=== PATIENT | female | born 1990 | race Caucasian/White ===

== ENCOUNTER 2019-07-27 11:57 | Day surgery (SDC) | payer BC ==
[2019-07-27 12:42] VITALS: BMI 37.8
[2019-07-27 13:11] LABS: Amnisure Internal Control QC ACCEPTABLE (ACCEPTABLE); Amnisure Test No Membranes Rupture (No Rupture)
--- NOTE | 2019-07-27 13:34 | PDOC.LDHP ---
Labor and Delivery H&P Chief complaint: loss of fluid HPI: 29 y/o G1 at 36w3d, patient of Dr. Logan, presents with gush of fluid earlier today but no continued leaking. Also having some cramping. Denies VB or decreased FM. ROS neg for HEENT, cv, pulm, gi, gu, neuro, psych, skin, musculoskeletal or constitutional symptoms other than mentioned above. OB History Details: 1st Current complications: none, other (possible PUPPPS) Past Medical History: Psoriasis Current medications: pre- vitamins, other (benadryl, hydrocortisone, betamethasone) Allergies/Adverse Reactions: Allergies Allergy/AdvReac Type Severity Reaction Status Date / Time No Known Allergies Allergy Verified 07/27/19 12:42 Social history: none - Physical Exam Vital signs reviewed and normal: yes General: NAD, resting Lungs: nonlabored breathing Abdomen: gravid Extremeties: no edema FHT: category 1 (150s, mod variability, + accels, no decels) Imperial contractions every: irregular - Vaginal Exam cm dilated: 1 (SSE neg for pooling or valsalva) Effacement: 25% Station: -3 - Assessment 29 y/o G1 at 36w3d with no e/o SROM or active labor. Neg SSE and amnisure. status reassuring with reactive NST. - Plan -: D/c home with precautions. Advised to keep all appointments.
== END 2019-07-27 13:40 | disposition home or self-care (01) ==
LOC: L&D/OP 11:57
PROVIDERS: ATTEND Obstetrics & Gynecology
DX: O99.89 Other specified diseases and conditions complicating pregnancy, childbirth and the puerperium (principal); N89.8 Other specified noninflammatory disorders of vagina; O47.03 False labor before 37 completed weeks of gestation, third trimester; Z3A.36 36 weeks gestation of pregnancy
CPT/HCPCS: 84112; 87480; 87510; 87660

== ENCOUNTER 2019-08-18 00:59 | Inpatient (IN) | payer BC ==
[2019-08-18] MEDS ORDERED: NS / Oxytocin 40 units/1000ml 1,000 ML IV PRN (01:43)
[2019-08-18] MEDS ORDERED: Promethazine HCl 25 MG/ML VIAL IM PRN ×2 (01:43→04:19)
[2019-08-18] MEDS ORDERED: hydrALAZINE 20 MG/ML VIAL SLOW IVP PRN ×2 (01:43→19:32)
[2019-08-18] MEDS ORDERED: Ibuprofen 800 MG TAB PO PRN (01:43)
[2019-08-18] MEDS ORDERED: HYDROcodone/Acetaminophen 5/325 mg Tablet PO PRN ×2 (01:43)
[2019-08-18] MEDS ORDERED: Ondansetron PF 4 MG/2 ML Vial IVP PRN ×2 (01:43→04:19)
[2019-08-18] MEDS ORDERED: Lidocaine 1% (PF) 30 ML VIAL SC PRN (01:43)
--- NOTE | 2019-08-18 01:45 | PDOC.EVN ---
Event Note - Event Note Event Note: Direct Admission to Private Physician/Desmond Courtesy orders placed I confirmed cephalic presentation by limited bedside sono (per RN request)
[2019-08-18 02:07] VITALS: BMI 38.6
[2019-08-18] MEDS: Lactated Ringer's 1,000 ML IV SCH ×3 (02:15→11:33)
[2019-08-18 02:29] LABS: Hemoglobin 13.2 g/dL (12.0-16.0); Mean Corpuscular HGB CONC 35.6 g/dL (32.0-36.0); Mean Corpuscular Hemoglobin 30.9 pg (27.0-31.0); Mean Platelet Volume 10.1 fL (7.4-10.4); Platelet Count 181 thou/uL (130-400); RBC Distribution Width 12.9 % (11.5-14.5); Red Blood Cell (RBC) Count 4.27 mill/uL (4.20-5.40)
[2019-08-18] MEDS ORDERED: Fentanyl 4 mcg/Bup 0.1% Cadd 100 ML ONE ×3 (02:55→16:05)
[2019-08-18 03:09] LABS: HBSAg Index 0.19 S/CO (0-0.99); HIV (1/2) Antibody/Antigen Non-Reactive (NonReactive); HIV 1/2 INDEX 0.06 S/CO (<1.00); Hep B Surf Ag Non-Reactive S/CO (NonReactive)
[2019-08-18] MEDS ORDERED: diphenhydrAMINE 50 MG/ML VIAL IVP PRN (04:19)
[2019-08-18] MEDS ORDERED: ePHEDrine/0.9% NaCl/PF SYRINGE 50 mg/10 ml SLOW IVP PRN (04:19)
[2019-08-18] MEDS ORDERED: Lactated Ringer's 500 ML IV PRN (04:19)
[2019-08-18] MEDS ORDERED: Acetaminophen 325 MG TAB PO PRN (04:19)
[2019-08-18] MEDS ORDERED: Naloxone HCl 0.4 mg/ml Vial IVP PRN ×2 (04:19)
[2019-08-18] MEDS ORDERED: Communication Order-Pharmacy FS SCH (04:30)
[2019-08-18] MEDS ORDERED: Fentanyl 4 mcg/Bupivacaine 0.1% Cassette 100 ML EPIDURAL SCH (04:30)
[2019-08-18 06:17] LABS: Syphilis Antibody Nonreactive (Nonreactive); Syphilis Antibody Index 0.04 S/CO (<1.00 Non-Reactive)
--- NOTE | 2019-08-18 08:11 | PDOC.LDHP ---
Labor and Delivery H&P Chief complaint: loss of fluid Current gestational age (weeks): 39 Dating criteria: first trimester ultrasound Grav: 1 Current complications: none Abnormal US findings: No Current medications: pre-paras vitamins Previous surgical history: other (ureteral reimplantation as a child) Allergies/Adverse Reactions: Allergies Allergy/AdvReac Type Severity Reaction Status Date / Time No Known Allergies Allergy Verified 07/27/19 12:42 Social history: none - Physical Exam General: NAD Heart: RRR Lungs: CTAB Abdomen: gravid FHT: category 1 - Vaginal Exam cm dilated: 2 Effacement: 75% Station: -1 - OB Labs Blood type: O RH: negative Antibody Screen: negative HIV: negative RPR: negative HEPSAg: negative 1 hour GCT: negative GBS: negative Urine drug screen: negative Rubella: immune - Assessment L&D Assessment: term rupture in membranes - Plan Plan: admit to L&D, labor augmentation if indicated
[2019-08-18] MEDS ORDERED: NS w/ Oxytocin 10 units 500 ML ONE (08:12)
[2019-08-18] MEDS ORDERED: NS / Oxytocin 40 units/1000ml 1,000 ML IV SCH ×2 (08:15→20:00)
[2019-08-18 19:03] LABS: Actual Bicarbonate (HCO3a) 21.9 mEq/L (22-28); Base Excess (BEa) -6.2 mEq/L (-2.0 to +3.0)
[2019-08-18] MEDS ORDERED: Lanolin Ointment 7 GM TUBE TOP PRN (19:32)
[2019-08-18] MEDS ORDERED: Bisacodyl 10 MG SUPP PR PRN (19:32)
[2019-08-18] MEDS ORDERED: Benzocaine-Menthol 82.5 ML CAN TOP PRN (19:32)
[2019-08-18] MEDS ORDERED: Misoprostol 200 MCG TAB VAG PRN (19:32)
--- NOTE | 2019-08-18 21:10 | PDOC.OPDEL ---
OB Operative/Delivery Note Delivery Dr/Surgeon: Des[facility] Pre-Delivery Diagnosis: active labor Procedure/Post Delivery Dx: operative vaginal delivery Weeks gestation: 39 Anesthesia: epidural - Findings A Sex: male Weight: 8 lb 2 oz - 1 min: 6 - 5 min: 9 - Additional Findings/Plan Placenta delivered: spontaneous Repaired Obstetrical Laceration: 3rd degree (With anal verge rectal extension. Layered repair technique carried out with 3-0 chromic running continuous rectal mucosa closure reinforced with perirectal fascial interrupted 3-0 chromic sutures. External sphincter reapproximated with figure of 8 2-0 chromic sutures x 3. The remainder of vaginal mucosa closed with 3-0 chromic sutures. Counts correct x 2.) Estimated blood loss: 400 ml
[2019-08-18] MEDS: Docusate Calcium (SURFAK) 240 MG CAP PO SCH (21:53)
[2019-08-19] MEDS: Lactated Ringer's 1,000 ML IV SCH (00:25)
[2019-08-19] MEDS ORDERED: Sodium Chloride 0.9% 10 ML ONE ×2 (04:03→08:36)
[2019-08-19] MEDS: Ibuprofen 800 MG TAB PO SCH ×3 (04:18→20:51)
--- NOTE | 2019-08-19 07:53 | PDOC.PP ---
Post Progress Note Post Day #: 1 PO intake tolerated: yes Flatus: yes Ambulation: yes Vital Signs (12 hours) Temp Pulse Resp BP Pulse Ox 08/19/19 04:16 97.8 F 101 H 18 125/71 08/18/19 23:00 97.8 F 109 H 18 131/69 08/18/19 21:55 98.8 F 111 H 18 126/74 08/18/19 20:55 98.3 F 107 H 18 137/76 96 Weight Weight 225 lb Result Diagrams: 08/18/19 02:20 Additional Labs: Post Labs Blood Type O NEGATIVE 08/18/19 04:44 Hep Bs Antigen Non-Reactive S/CO (NonReactive) 08/18/19 02:20 - Assessment/Plan Post day 0-1..Low forceps assisted vaginal delivery for maternal exhaustion in second stage with no further descent after additional hour of pushing . tachycardia 160-170...Third degree extension with rectal mucosa anal verge separation repaired. Tara care and post routine support.
[2019-08-19] MEDS: Prenatal Vitamin 1 TAB PO SCH (08:59)
[2019-08-19] MEDS: Docusate Calcium (SURFAK) 240 MG CAP PO SCH ×2 (08:59→20:51)
[2019-08-19] MEDS ORDERED: Adacel (T-DAP) 0.5 ML SYRINGE IM ONE (09:00)
[2019-08-19] MEDS: Ferrous Sulfate 325 MG TAB PO SCH ×2 (09:00→16:37)
[2019-08-19] MEDS: Milk Of Magnesia 30 ML UDCUP PO PRN (09:03)
[2019-08-19] MEDS: traMADol HCl 50 MG TAB PO PRN (11:15)
[2019-08-19] MEDS ORDERED: Witch Hazel-Glycerin 1 EACH JAR TOP SCH (12:00)
[2019-08-19] MEDS: HYDROcodone/Acetaminophen 5/325 mg Tablet PO PRN (21:15)
[2019-08-20] MEDS: HYDROcodone/Acetaminophen 5/325 mg Tablet PO PRN (03:32)
[2019-08-20] MEDS: Ibuprofen 800 MG TAB PO SCH ×2 (06:14→15:00)
[2019-08-20 07:25] VITALS: BP 120/70; TEMP 98.2
--- NOTE | 2019-08-20 08:23 | PDOC.PP ---
Post Progress Note Post Day #: 2 Subjective: Doing better. pain lessening. Had bowel movement yesterday and did ok. No bowel incontinence. PO intake tolerated: yes Flatus: yes Ambulation: yes Vital Signs (12 hours) Temp Pulse Resp BP Pulse Ox 08/20/19 07:10 98.2 F 96 16 120/70 98 08/20/19 04:18 99 08/19/19 20:45 99 Weight Weight 225 lb Result Diagrams: 08/18/19 02:20 Additional Labs: Post Labs Blood Type O NEGATIVE 08/18/19 04:44 Hep Bs Antigen Non-Reactive S/CO (NonReactive) 08/18/19 02:20 - Assessment/Plan Post day 2 from low forcep assisted vaginal delivery. Third degree extension with anal verge mucosa tear. Progessing well. BM accomplished without difficulty. Plan to discharge home. Tara care improtance reviewed. F/U 2 and 6 weeks.
[2019-08-20] MEDS: Ferrous Sulfate 325 MG TAB PO SCH (09:10)
[2019-08-20] MEDS: Prenatal Vitamin 1 TAB PO SCH (09:14)
[2019-08-20] MEDS: traMADol HCl 50 MG TAB PO PRN ×2 (09:14→15:00)
[2019-08-20] MEDS: Docusate Calcium (SURFAK) 240 MG CAP PO SCH (09:14)
[2019-08-20] MEDS: Milk Of Magnesia 30 ML UDCUP PO PRN (10:50)
[2019-08-20] MEDS ORDERED: Measles/Mumps/Rubella 10 MCG/0.5 ML VIAL SC ONE (11:45)
== END 2019-08-20 15:25 | disposition home or self-care (01) | DRG 768 ==
LOC: L&D/OP 00:59 → L&D 01:30 → 3SW 21:01
PROVIDERS: ADMIT Obstetrics & Gynecology; ATTEND Obstetrics & Gynecology
PROC: 10D07Z3 Extraction of Products of Conception, Low Forceps, Via Natural or Artificial Opening (ICD-10-PCS; principal; 2019-08-18)
PROC: 0DQP0ZZ Repair Rectum, Open Approach (ICD-10-PCS; 2019-08-18)
DX: O70.20 Third degree perineal laceration during delivery, unspecified (principal); Z37.0 Single live birth; Z3A.39 39 weeks gestation of pregnancy
CPT/HCPCS: 36415; 51702; 82805; 85027; 85461; 86780; 86850; 86900; 86901; 87340; 87389; 90384; 90707; 96372; 99285; J2590

== ENCOUNTER 2019-09-10 17:28 | Observation (INO) | payer BC ==
[2019-09-10 18:41] LABS: Hemoglobin 12.2 g/dL (12.0-16.0); Mean Corpuscular Volume 87.8 fL (78.0-98.0); Mean Platelet Volume 7.6 fL (7.4-10.4); Platelet Count 414 thou/uL (130-400); RBC Distribution Width 13.2 % (11.5-14.5); Red Blood Cell (RBC) Count 4.22 mill/uL (4.20-5.40); White Blood Cell (WBC) Count 22.7 thou/uL (4.8-10.8)
[2019-09-10 18:57] LABS: Band 20 % (5-11); Lymphocytes 4 % (21-51); MDiff Complete? YES; Monocytes 3 % (0-10); Neutrophil 73 % (42-75); Platelet Morphology Comment Appears Increased; RBC Morphology Normal
[2019-09-10 19:00] LABS: ALT (SGPT) 33 U/L (8-55); AST (SGOT) 19 U/L (5-34); Alkaline Phosphatase 103 U/L (40-110); Anion Gap 16 mmol/L (10-20); BUN (Urea Nitrogen) 17 mg/dL (7.0-18.7); Bilirubin, Total 0.3 mg/dL (0.2-1.2); Calc. Creatinine Clearance 0 mL/min (70-130); Calcium 8.9 mg/dL (7.8-10.44); Carbon Dioxide 22 mmol/L (22-29); Chloride 103 mmol/L (98-107); Estimated GFR-MDRD 62; Globulin 2.8 g/dL (2.4-3.5); Glucose 102 mg/dL (70-105); Potassium 3.7 mmol/L (3.5-5.1); Protein, Total 6.8 g/dL (6.0-8.3); Sodium 137 mmol/L (136-145)
[2019-09-10] MEDS ORDERED: cefTRIAXone\\ROCEPHIN 1 GM VIAL ONE (20:21)
[2019-09-10] MEDS ORDERED: Ibuprofen 800 MG TAB ONE (20:39)
[2019-09-10] MEDS ORDERED: Acetaminophen 500 MG TAB ONE (20:39)
--- NOTE | 2019-09-10 20:39 | ULT ---
Ultrasound bilateral breasts limited: DATE: 09/10/2019 HISTORY: 29-year-old female with breast pain, fever, and leukocytosis. FINDINGS: No organized focal fluid collection identified. Edema throughout both breasts. Lumpia Wrapper Maker states that there are dilated ducts at 2:00 in the left breast. From the static images, i t is difficult to appreciate this. IMPRESSION: 1. Soft tissue edema. 2. No abscess identified.
[2019-09-10 22:18] VITALS: BP 111/58; TEMP 99.4
--- NOTE | 2019-09-10 23:50 | PRG ---
DATE OF SERVICE: 09/10/2019 HISTORY: The patient is a 29-year-old female, who is about 3 weeks out from her delivery of her child at term and subsequently diagnosed with mastitis and treated for 10 days of antibiotics, now presenting to the emergency room for concerns of recurrence of this mastitis. She reports that her breast became red and tender on the right and then improved and then the left became red and tender and improved and then feeling pain on the right side again. She also reports that she has felt painful knots. The patient at this time is actually expressing desire to discontinue breast-feeding altogether and desires to dry up her milk supply. The patient has taken a 10-day course of dicloxacillin, has been given a gram of Rocephin earlier today and another gram this evening in the emergency room. Given the report of failed outpatient management, the patient was admitted to the floor for observation. Here on the floor, the patient again reports the same history. She reports this intermittent skin changes and redness from the left and right breast. Reports that she continues to pump and having producing a good supply. She also reports she has an appointment with Dr. Logan on Friday for followup. PHYSICAL EXAMINATION: VITAL SIGNS: Here on the floor, blood pressure is 111/58, temperature 99.4, pulse of 108, respiratory rate of 20, and saturating 97% on room air. GENERAL: She appears to be in no acute distress. She is alert, oriented, cooperative, and pleasant to interact with. HEENT: Head is normocephalic, atraumatic. BREASTS: Enlarged. There is no erythema present or visible. There is no significant tenderness to palpation of either breast, and there is no induration of the skin tissue. She has some enlarged milk ducts and milk gland on the right breast in the outer quadrant. Otherwise, generally, breasts feel well emptied. There is no purulence coming from the nipples. There is no fluctuance present on palpation. Again, no erythema and no significant tenderness at the time of our evaluation. PAST MEDICAL HISTORY: Negative. PAST SURGICAL HISTORY: She has had bladder surgery as a child. SOCIAL HISTORY: The patient reports she drinks socially. Denies any drug use. ALLERGIES: NO KNOWN DRUG ALLERGIES. MEDICATIONS: Again just recently completed dicloxacillin. Vital signs and history as reported. ASSESSMENT AND PLAN: The patient is a 29-year-old, about 3 weeks out from delivery and a history of mastitis, here for concerns of failed outpatient treatment. On exam, the patient does not appear to have any active mastitis presently, no significant tenderness to palpation, no erythema, no induration, no fluctuance. She does have, what feels to be an enlarged milk duct on the right outer quadrant. Left breast feels to be emptied well. After discussing my findings with Ms. Christianson and belief that she has had resolution of her mastitis and had expressed my options of discharge home versus observation overnight, the patient has expressed interest in discharge home. She does have a followup appointment with Dr. Logan on Friday, for which she can get seen again. She has 2 g of Rocephin in her system with her 1 g most recently being given this evening. I do not believe the patient needs continued antibiotic treatment. She has expressed a desire for drying up her milk, so we have recommended wearing a tight fitted bra with an exercise bra over, cabbage leaves and cold compresses, ibuprofen, and avoid stimulation of any kind whether it is shower or other tactical stimulation, breast-feeding, or clothing stimulating the nipples. The patient has expressed understanding. She has expressed her desire to be discharged home as well. The patient has been given precautions for worsening symptoms. Job ID: [id number]
== END 2019-09-10 22:52 | disposition home or self-care (01) ==
LOC: ERS 17:28 → 3SW 21:32
PROVIDERS: ADMIT Obstetrics & Gynecology; ATTEND Obstetrics & Gynecology
DX: O12.05 Gestational edema, complicating the puerperium (principal); D72.829 Elevated white blood cell count, unspecified
CPT/HCPCS: 36415; 76642; 80053; 83605; 85025; 87040; 93005; 96361; 96365; G0378; J0696